=== PATIENT | female | born 1950 | race Hispanic/Latino ===

== ENCOUNTER 2016-08-19 21:02 | Observation (INO) | payer MEDICARE, BC ==
[2016-08-19 21:02] VITALS: BMI 21.6
[2016-08-19] MEDS ORDERED: Sodium Chloride 0.9% 500 ML IV STA (21:36)
[2016-08-19] MEDS ORDERED: HYDROmorphone 0.5 mg/0.5 ml ISec IVP STA ×2 (21:36→22:25)
--- NOTE | 2016-08-19 21:48 | ED PDOC ---
Arrival/HPI - General Historian: Patient <CHELSIE SANTILLAN - Last Filed: 08/20/16 03:16> <Rangel Aguirre - Last Filed: 08/21/16 01:42> - General Chief Complaint: Abdominal Pain Time Seen by Provider: 08/19/16 21:06 - History of Present Illness Narrative History of Present Illness (Text): 08/19/16 21:43 Mrs. Ruff is a 66 year old female with pmh significant for small bowel obstruction in 2014 and renal stones comes into the emergency department complaining of abdominal pain. She states the pain began earlier in the day and has progressed in to the evening. She describes the pain as dull mid-abdominal pain without radiation that is rated as a 11/10. She states the pain intermittent in nature. She denies any alleviating or aggravating factors at this time. Associated symptoms include nausea, vomiting and diarrhea. She denies fever, sweating, chest pain, or shortness of breath. (CHELSIE SANTILLAN) Past Medical History - Provider Review Nursing Documentation Reviewed: Yes - Infectious Disease Hx of Infectious Diseases: None - Tetanus Immunization Tetanus Immunization: Unknown - Cardiac Hx Cardiac Disorders: No - Pulmonary Hx Respiratory Disorders: No - Neurological Hx Neurological Disorder: No - HEENT Hx HEENT Disorder: No - Renal Hx Kidney Stones: Yes - Endocrine/Metabolic Hx Endocrine Disorders: No - Hematological/Oncological Hx Blood Disorders: No Hx Blood Transfusions: No Hx Blood Transfusion Reaction: No - Integumentary Hx Dermatological Disorder: No - Musculoskeletal/Rheumatological Hx Back Pain: Yes (laminectomy x2) - Gastrointestinal Hx Gastrointestinal Disorders: Yes Hx Bowel Surgery: Yes (partial bowel obstruction) Other/Comment: ovarian cyst removed 2001 - Psychiatric Hx Psychophysiologic Disorder: No Hx Depression: No Hx Emotional Abuse: No Hx Physical Abuse: No Hx Substance Use: No - Surgical History Hx Cholecystectomy: Yes (1978) - Anesthesia Hx Anesthesia: No Hx Anesthesia Reactions: No Hx Malignant Hyperthermia: No - Suicidal Assessment Feels Threatened In Home Enviroment: No <CHELSIE SANTILLAN - Last Filed: 08/20/16 03:16> - Provider Review Nursing Documentation Reviewed: Yes <Rangel Aguirre - Last Filed: 08/21/16 01:42> Family/Social History - Physician Review Nursing Documentation Reviewed: Yes Family/Social History: No Known Family HX Smoking Status: Former Smoker Hx Alcohol Use: Yes Hx Substance Use: No Hx Substance Use Treatment: No <CHELSIE SANTILLAN - Last Filed: 08/20/16 03:16> - Physician Review Nursing Documentation Reviewed: Yes Family/Social History: No Known Family HX <Rangel Aguirre - Last Filed: 08/21/16 01:42> Allergies/Home Meds <CHELSIE SANTILLAN - Last Filed: 08/20/16 03:16> <Rangel Aguirre - Last Filed: 08/21/16 01:42> Allergies/Adverse Reactions: Allergies No Known Allergies Allergy (Verified 08/20/16 05:08) Review of Systems - Review of Systems Constitutional: absent: Fatigue, Weight Change, Fevers Eyes: absent: Vision Changes Respiratory: absent: SOB, Cough, Sputum Cardiovascular: absent: Chest Pain, Palpitations, Edema Gastrointestinal: Abdominal Pain, Diarrhea, Nausea, Vomiting, Food Intolerance. absent: Hematemesis Genitourinary Female: absent: Dysuria, Frequency, Hematuria Musculoskeletal: absent: Back Pain Skin: absent: Rash, Pruritis Neurological: absent: Headache, Dizziness, Focal Weakness Psychiatric: absent: Anxiety, Depression <CHELSIE SANTILLAN - Last Filed: 08/20/16 03:16> - Physician Review All systems were reviewed & negative as marked: Yes <Rangel Aguirre - Last Filed: 08/21/16 01:42> Physical Exam Vital Signs Reviewed: Yes Temperature: Afebrile Blood Pressure: Normal Pulse: Tachycardic Respiratory Rate: Normal Appearance: Positive for: Uncomfortable Pain Distress: Moderate Mental Status: Positive for: Alert and Oriented X 3 - Systems Exam Head: Present: Atraumatic, Normocephalic Pupils: Present: PERRL Extroacular Muscles: Present: EOMI Conjunctiva: Present: Normal Mouth: Present: Dry Neck: Present: Normal Range of Motion Respiratory/Chest: Present: Clear to Auscultation, Good Air Exchange. No: Respiratory Distress, Accessory Muscle Use Cardiovascular: Present: Regular Rate and Rhythm, Normal S1, S2. No: Murmurs Abdomen: Present: Tenderness (mid abdomen ), Guarding. No: Normal Bowel Sounds (hypocactive bowel sounds), Peritoneal Signs, Rovsing's Sign Present Upper Extremity: Present: Normal Inspection, NORMAL PULSES. No: Edema Lower Extremity: Present: Normal Inspection, NORMAL PULSES. No: Edema Neurological: Present: GCS=15, CN II-XII Intact, Speech Normal Skin: Present: Warm, Dry Psychiatric: Present: Alert, Oriented x 3 <CHELSIE SANTILLAN - Last Filed: 08/20/16 03:16> Medical Decision Making <CHELSIE SANTILLAN - Last Filed: 08/20/16 03:16> <Rangel Aguirre - Last Filed: 08/21/16 01:42> ED Course and Treatment: 08/19/16 21:52 Impression: Mrs. Ruff is a 66 year old female complaining of abdominal pain that has been ongoing for 6-8 hours. Differential Diagnosis included but are not limited to: - Gastritis - Colitis - Small bowel obstruction - IBD Plan: - IVF - CBC, CMP, Lipase - CT scan abdomen and pelvis - zofran - dilaudid -- Reassess and disposition Progress Notes: 08/20/16 03:17 (CHELSIE SANTILLAN) Impression: Pt seen and evaluated with biomedical equipment support specialist. Pt, whose past medical history includes small bowel obstruction and kidney stones, presented for intermittent mid-abdominal pain with associated nausea, vomiting, and diarrhea. Aware and agree with HPI, clinical findings, plan, and management. Plan: -- CT Abdomen and Pelvis with IV contrast -- Labs, lipase -- IV fluids -- Zofran -- Dilaudid -- Reassess and disposition (Rangel Aguirre) - Lab Interpretations Lab Results: 08/19/16 21:53 08/19/16 21:53 Lab Results 08/19/16 21:53: Sodium 141, Potassium 3.4 L, Chloride 104, Carbon Dioxide 27, Anion Gap 13, BUN 25 H, Creatinine 0.7, Est GFR ( Amer) > 60, Est GFR ( Non-Af Amer) > 60, Random Glucose 145 H, Calcium 10.3, Total Bilirubin 0.7, AST 33, ALT 28, Alkaline Phosphatase 80, Total Protein 7.8, Albumin 4.5, Globulin 3.3, Albumin/Globulin Ratio 1.4, Lipase 34 08/19/16 21:53: WBC 10.6, RBC 4.70, Hgb 14.9, Hct 43.2, MCV 91.9, MCH 31.7, MCHC 34.5, RDW 12.6, Plt Count 197, MPV 11.0 - RAD Interpretation Radiology Orders: 08/19/16 22:24 ABD & PELVIS IV CONTRAST ONLY [CT] Stat - Medication Orders Current Medication Orders: Hydromorphone HCl (Dilaudid) 0.5 mg IVP Q4H PRN PRN Reason: Pain, moderate (4-7) Last Admin: 08/20/16 11:42 Dose: 0.5 mg Re-Assess: VISHAL Pain Assessment Document 08/20/16 12:42 RS (Rec: 08/20/16 12:53 RS [email or web address]) Pain Reassessment Is this a pain reassessment? Yes Sleep Is patient sleeping during reassessment? No Presence of Pain Presence of Pain No Metronidazole (Flagyl) 250 mg in 50 mls @ 100 mls/hr IV Q8 KAILA PRN Reason: Protocol Stop: 08/25/16 10:01 Last Admin: 08/20/16 21:53 Dose: 100 mls/hr Ceftriaxone Sodium (Rocephin 1 Gram Ivpb) 1 gm in 100 mls @ 100 mls/hr IVPB DAILY KAILA PRN Reason: Protocol Last Admin: 08/20/16 11:01 Dose: 100 mls/hr Ondansetron HCl (Zofran Inj) 4 mg IVP Q6H PRN PRN Reason: Nausea/Vomiting Last Admin: 08/20/16 11:53 Dose: 4 mg Pantoprazole Sodium (Protonix Inj) 40 mg IVP DAILY KAILA Discontinued Medications Hydromorphone HCl (Dilaudid) 0.5 mg IVP STAT STA Stop: 08/19/16 21:37 Last Admin: 08/19/16 21:59 Dose: 0.5 mg Hydromorphone HCl (Dilaudid) 0.5 mg IVP STAT STA Stop: 08/19/16 22:26 Last Admin: 08/19/16 22:36 Dose: 0.5 mg Hydromorphone HCl (Dilaudid) 0.5 mg IVP STAT STA Stop: 08/20/16 01:31 Last Admin: 08/20/16 01:40 Dose: 0.5 mg Sodium Chloride (Sodium Chloride 0.9%) 500 mls @ 999 mls/hr IV .Q31M STA Stop: 08/19/16 22:06 Last Admin: 08/19/16 21:58 Dose: 999 mls/hr Metronidazole (Flagyl) 500 mg in 100 mls @ 100 mls/hr IVPB STAT STA PRN Reason: Protocol Stop: 08/20/16 02:09 Last Admin: 08/20/16 01:20 Dose: 100 mls/hr Sodium Chloride (Sodium Chloride 0.9%) 1,000 mls @ 100 mls/hr IV .Q10H STA Stop: 08/20/16 12:07 Last Admin: 08/20/16 02:27 Dose: 100 mls/hr Potassium Chloride (Potassium Chloride 10 Meq/100 Ml) 10 meq in 100 mls @ 100 mls/hr IVPB Q2H KAILA Stop: 08/20/16 05:59 Last Admin: 08/20/16 07:23 Dose: 100 mls/hr Iohexol (Omnipaque 350 100 Ml) Confirm Administered Dose 350 mg .ROUTE .STK-MED ONE Stop: 08/20/16 00:01 Metoclopramide HCl (Reglan) 10 mg IVP STAT STA Stop: 08/20/16 03:00 Last Admin: 08/20/16 03:06 Dose: 10 mg Ondansetron HCl (Zofran Tab) 4 mg PO STAT STA Stop: 08/19/16 21:34 Last Admin: 08/19/16 21:59 Dose: 4 mg Ondansetron HCl (Zofran Inj) 4 mg IVP STAT STA Stop: 08/19/16 22:26 Last Admin: 08/19/16 22:37 Dose: 4 mg Ondansetron HCl (Zofran Inj) 4 mg IVP STAT STA Stop: 08/20/16 01:31 Last Admin: 08/20/16 01:41 Dose: 4 mg Pantoprazole Sodium (Protonix Inj) 40 mg IVP STAT STA Stop: 08/20/16 03:11 - PA / POLICE DETENTION ATTENDANT / Resident Statement SHARIF has reviewed & agrees with the documentation as recorded. SHARIF has examined the patient and agrees with the treatment plan. <CHELSIE SANTILLAN - Last Filed: 08/20/16 03:16> - PA / POLICE DETENTION ATTENDANT / Resident Statement SHARIF has examined the patient and agrees with the treatment plan. <Rangel Aguirre - Last Filed: 08/21/16 01:42> Disposition/Present on Arrival - Present on Arrival Any Indicators Present on Arrival: No History of DVT/PE: No History of Uncontrolled Diabetes: No Urinary Catheter: No History of Decub. Ulcer: No History Surgical Site Infection Following: None - Disposition Have Diagnosis and Disposition been Completed?: Yes Disposition Time: 02:45 <CHELSIE SANTILLAN - Last Filed: 08/20/16 03:16> - Present on Arrival Any Indicators Present on Arrival: No - Disposition Have Diagnosis and Disposition been Completed?: Yes <Rangel Aguirre - Last Filed: 08/21/16 01:42> - Disposition Diagnosis: Colitis Disposition: HOSPITALIZED Patient Problems: Current Active Problems Problem Status Onset Colitis Acute Condition: GOOD
[2016-08-19 22:09] LABS: HEMOGLOBIN 14.9 gm/dL (12.0-16.0); MEAN CELL VOLUME 91.9 fL (80.0-105.0); MEAN CORPUSCULAR HEMOGLOBIN 31.7 pg (25.0-35.0); MEAN CORPUSCULAR HGB CONC 34.5 g/dl (31.0-37.0); RBC 4.7 10^6/uL (3.5-6.1); RED CELL DISTRIBUTION WIDTH 12.6 % (11.5-14.5); WHITE BLOOD COUNT 10.6 10^3/ul (4.5-11.0)
[2016-08-19 22:14] LABS: ALB/GLOB RATIO 1.4 (1.1-1.8); ALBUMIN 4.5 g/dL (3.0-4.8); ALT/SGPT 28 U/L (7-56); AST/SGOT 33 U/L (15-39); BLOOD UREA NITROGEN 25 mg/dL (7-21); CALCIUM 10.3 mg/dL (8.4-10.5); GFR AFRICAN-AMERICAN > 60; GFR NON-AFRICAN AMERICAN > 60; LIPASE 34 U/L (23-300)
[2016-08-20] MEDS ORDERED: Iohexol 350 MG/100 ML VIAL ONE
[2016-08-20] MEDS ORDERED: metroNIDAZOLE IV 500 mg/100 ml 500 MG/100 ML BAG IVPB STA (01:10)
[2016-08-20] MEDS ORDERED: HYDROmorphone 0.5 mg/0.5 ml ISec IVP STA (01:30)
[2016-08-20] MEDS ORDERED: Sodium Chloride 0.9% 1,000 ML IV STA (02:08)
[2016-08-20] MEDS: HYDROmorphone 0.5 mg/0.5 ml ISec IVP PRN ×2 (03:06→11:42)
--- NOTE | 2016-08-20 04:23 | CP.PCM.PN ---
Subjective - Date & Time of Evaluation Date of Evaluation: 08/20/16 Time of Evaluation: 04:23 - Subjective Subjective: Patient was seen at bedside for vomiting. She has been vomiting , received Zofran a little more than an hour ago. Also complains of little epigastric pain. Has no other complaints now. Denies chest pain, sob, diarrhoea. Medcial record was reviewed. This 66 year old white woman is here for abdominal pain ,vomiting, nausea, diarrhoea. Has PMH of Small bowel obstruction, cholecystectomy, renal calculus, laminectomy, chronic back pain. Objective - Vital Signs/Intake and Output Vital Signs (last 24 hours): Temp Pulse Resp BP Pulse Ox 98.0 F 95 H 19 138/85 98 08/20/16 03:29 08/20/16 03:29 08/20/16 03:29 08/20/16 03:29 08/20/16 02:29 - Medications Medications: Current Medications Hydromorphone HCl (Dilaudid) 0.5 mg IVP Q4H PRN PRN Reason: Pain, moderate (4-7) Last Admin: 08/20/16 03:06 Dose: 0.5 mg Sodium Chloride (Sodium Chloride 0.9%) 1,000 mls @ 100 mls/hr IV .Q10H STA Stop: 08/20/16 12:07 Last Admin: 08/20/16 02:27 Dose: 100 mls/hr Potassium Chloride (Potassium Chloride 10 Meq/100 Ml) 10 meq in 100 mls @ 100 mls/hr IVPB Q2H KAILA Stop: 08/20/16 05:59 Ondansetron HCl (Zofran Inj) 4 mg IVP Q6H PRN PRN Reason: Nausea/Vomiting Pantoprazole Sodium (Protonix Inj) 40 mg IVP DAILY KAILA - Labs Labs: Most Recent Lab Values WBC 10.6 10^3/ul (4.5-11.0) 08/19/16 21:53 RBC 4.70 10^6/uL (3.5-6.1) 08/19/16 21:53 Hgb 14.9 gm/dL (12.0-16.0) 08/19/16 21:53 Hct 43.2 % (36.0-48.0) 08/19/16 21:53 MCV 91.9 fL (80.0-105.0) 08/19/16 21:53 MCH 31.7 pg (25.0-35.0) 08/19/16 21:53 MCHC 34.5 g/dl (31.0-37.0) 08/19/16 21:53 RDW 12.6 % (11.5-14.5) 08/19/16 21:53 Plt Count 197 10^3/uL (120.0-450.0) 08/19/16 21:53 MPV 11.0 fl (7.0-11.0) 08/19/16 21:53 Sodium 141 mmol/L (132-148) 08/19/16 21:53 Potassium 3.4 mmol/L (3.6-5.0) L 08/19/16 21:53 Chloride 104 mmol/L (98-107) 08/19/16 21:53 Carbon Dioxide 27 mmol/L (21-33) 08/19/16 21:53 Anion Gap 13 (10-20) 08/19/16 21:53 BUN 25 mg/dL (7-21) H 08/19/16 21:53 Creatinine 0.7 mg/dL (0.5-1.4) 08/19/16 21:53 Est GFR ( Amer) > 60 08/19/16 21:53 Est GFR (Non-Af Amer) > 60 08/19/16 21:53 Random Glucose 145 mg/dL (70-110) H 08/19/16 21:53 Calcium 10.3 mg/dL (8.4-10.5) 08/19/16 21:53 Total Bilirubin 0.7 mg/dL (0.2-1.3) 08/19/16 21:53 AST 33 U/L (15-39) 08/19/16 21:53 ALT 28 U/L (7-56) 08/19/16 21:53 Alkaline Phosphatase 80 U/L (38-133) 08/19/16 21:53 Total Protein 7.8 g/dL (5.8-8.3) 08/19/16 21:53 Albumin 4.5 g/dL (3.0-4.8) 08/19/16 21:53 Globulin 3.3 gm/dL 08/19/16 21:53 Albumin/Globulin Ratio 1.4 (1.1-1.8) 08/19/16 21:53 Lipase 34 U/L (23-300) 08/19/16 21:53 - Constitutional Appears: Well, No Acute Distress - Head Exam Head Exam: ATRAUMATIC, NORMAL INSPECTION, NORMOCEPHALIC - Eye Exam Eye Exam: Normal appearance - ENT Exam ENT Exam: Mucous Membranes Dry - Neck Exam Neck Exam: Normal Inspection - Respiratory Exam Respiratory Exam: NORMAL BREATHING PATTERN - Cardiovascular Exam Cardiovascular Exam: absent: JVD - GI/Abdominal Exam GI & Abdominal Exam: Soft (Yes.), Tenderness (Mild epigastric tenderness present.), Normal Bowel Sounds. absent: Bruit, Distended, Firm, Guarding, Rigid , Hernia, Mass, Organomegaly, Pulsatile Mass, Rebound - Rectal Exam Rectal Exam: Deferred - Exam Additional comments: Deferred. - Extremities Exam Extremities Exam: Normal Inspection - Back Exam Back Exam: NORMAL INSPECTION - Neurological Exam Neurological Exam: Alert, Oriented x3 - Psychiatric Exam Psychiatric exam: Normal Affect, Normal Mood - Skin Skin Exam: Dry, Normal Color Assessment and Plan - Assessment and Plan (Free Text) Assessment: Abdominal pain. Vomiting. History small bowel obstruction. History cholecystectomy. Hypokalemia. Dehydration. Plan: Reglan 10 mg IV stat. KCL 10 mEq IV x 2. Protonix 40 mg IV stat and daily. Continue present management as per PMD.
--- NOTE | 2016-08-20 09:09 | CT ---
PROCEDURE: CT abdomen and pelvis dated 10/13/2014 HISTORY: Abdominal pain. COMPARISON: Comparison made with CT scan abdomen pelvis 10/13/2014. TECHNIQUE: Contiguous axial pelvis performed following oral and intravenous injection of approximately 96 cc Omnipaque 350 contrast material. . Coronal and Sagittal reformats generated. Radiation dose: Total exam DLP = 371.65 mGy-cm. This CT exam was performed using one or more of the following dose reduction techniques: Automated exposure control, adjustment of the mA and/or kV according to patient size, and/or use of iterative reconstruction technique. FINDINGS: LOWER THORAX: Mild atelectasis both posterior lower lung fried. No effusion or basilar pneumothorax. Tiny hiatal hernia with slight wall thickening of the esophagus that could be due to protrusion of gastric mucosa. Possibility of esophagitis not excluded. Heart size within range of normal. No significant pericardial effusion. LIVER: Liver is mildly enlarged measuring nearly 19 cm in CC dimension. Mild fatty hepatic infiltration. Portal and splenic veins are opacified. There is mild central intrahepatic biliary ductal dilatation. . Small approximately 4.5 mm elliptical shaped low-attenuation focus superior aspect right lobe liver on could represent small cyst or hemangioma though appears unchanged from prior study so far as can be seen. GALLBLADDER AND BILE DUCTS: Re- demonstrated are changes of cholecystectomy with metallic clips in the gallbladder fossa. . Persistent dilatation of the common bile duct measuring nearly 9.5 mm in diameter. . PANCREAS: No obvious hepatic mass or collection. The pancreatic duct is is mildly prominent at the level of the pancreatic head and midbody however not significantly dilated. . No definitive pancreatic mass or collection. No abnormal pancreatic calcifications. SPLEEN: Spleen exhibits normal size and attenuation pattern without mass collection or calcification. ADRENALS: There are no adrenal lesions. KIDNEYS AND URETERS: . Re- demonstrated are bilateral renal calculi. There is a small approximately 5.6 mm elliptical shaped calculus midpole left kidney unchanged. Punctate calcification - mid-lower pole region also unchanged. Punctate calcification mid to lower pole right kidney noted. No evidence of hydronephrosis. Again noted are multiple small bilateral low-attenuation foci renal. Most are likely simple cysts however there is a small approximately 5.6 mm slightly hypodense lesion in the anterior cortex of mid to lower pole right kidney which is not clearly cystic and could represent hyperdense cyst. The possibility of a solid lesion cannot be excluded. Consider followup renal ultrasound for further evaluation of to help but distinguish cyst versus a solid lesion. MRI may necessary for further evaluation. . The largest suspected cyst upper pole right kidney measuring approximately and the largest on the left posteromedial aspect midpole left kidney measuring approximately 12 mm. BLADDER: Urinary bladder is physiologically distended. No evidence of intraluminal urinary bladder calculi. REPRODUCTIVE: Uterus and adnexal structures appear grossly unremarkable. APPENDIX: Appendix is not seen with complete certainty. BOWEL: Evaluation of the bowel is limited due to the lack of oral contrast material. . The stomach is incompletely distended which may account for thick-walled appearance. Possibility of gastritis or other intrinsic/invasive wall lesion not excluded. Multiple fluid-filled loops of small bowel are present with minimal wall thickening. . . There is also wall thickening of the cecum, ascending and transverse colon findings could represent enterocolitis. PERITONEUM: Unremarkable. No fluid collection. No free air. LYMPH NODES: Unremarkable. No enlarged lymph nodes. VASCULATURE: Unremarkable. No aortic aneurysm. BONES: Multilevel degenerative spondylosis of the lower thoracic and lumbar spine. There is a dextroscoliosis centered at approximately the L2 level. Apparent fusion changes L5-S1 level. OTHER FINDINGS: None. IMPRESSION: Multiple fluid-filled loops of small bowel with minimal wall thickening suggesting underlying enteritis. . Additionally, there is abnormal wall thickening of the cecum at ascending and transverse colon consistent with colitis. Collectively findings may represent enterocolitis. Rule out the inflammatory versus infectious etiologies. Status post cholecystectomy with dilatation of the common bile duct and mild intrahepatic biliary ductal dilatation. Mild hepatomegaly with mild fatty hepatic infiltration. Small low-attenuation focus superior aspect right lobe liver too small to characterize though relatively stable in appearance since prior exam. This could represent small cyst or hemangioma. Multiple bilateral low-attenuation foci both kidneys of most of which probably represent cysts however there is a 5.6 mm slightly hypodense lesion right kidney that is not clearly cystic and could represent hyperdense cyst. Possibility of a solid lesion not excluded. Follow-up renal ultrasound or MRI may be of some benefit. Repeat CT scan in performed as well. Bilateral nonobstructing renal calculi. See above discussion for additional findings and details.
--- NOTE | 2016-08-20 10:00 | CP.PCM.CON ---
<Suha Garg - Last Filed: 08/20/16 14:09> History of Present Illness - History of Present Illness History of Present Illness: Judy Ruff is a 66F w/ hx of SBO s/p ex lap and diverticulitis who presented to the ED with complaints of abd pain and nausea. Pt states that he was was in her normal health until yesterday morning. She awoke nauseous, but was initially mild and she could tolerate a light meal of toast. She states that her nausea eventually worsened to where she was incapacitated. Concurrently she describes a new onset of abd pain. Located in the epigastric area, non- radiating. Worsened to a point of 10 out of 10 pain. Pt could not recall any alleviating or aggravating factors. Pt states only billous ouput, denies any food particles or blood. Pt states that she also started to experience new onset diarrhea. Pt states that she had at least 3-4 BM yesterday with soft and runny stool. Denies any mucus, BRB, or melena. Pt denies any recent abx use. Denies any sick contacts. No recent travel, other than [place], a few weeks ago. Denies any fever, chills or diaphoresis. Pt states that she has a colonoscopy at the age of 51 with no sig findings, but has not had a follow-up since. Pt states that she was d/w her PCP about cologuard testing. In the ER, she was found to have a enteritis and colitis of transverse and asceding on CT ( limited due to no PO contrast). Pt nausea resolved after zofran and no longer has pain after dilaudid. Pt also recieved flagyl in the ER. Social history: clinical social work aide, non-smoker, social ETOH use, denies nay illicit drug use Family history: father (breast cancer), mother (lymphoma) ROS: 12 point review of systems was conducted, neg other than what was stated in the HPI Past Patient History - Infectious Disease Hx of Infectious Diseases: None - Tetanus Immunizations Tetanus Immunization: Unknown - Past Social History Smoking Status: Never Smoked - CARDIAC Hx Cardiac Disorders: No - PULMONARY Hx Respiratory Disorders: No - NEUROLOGICAL Hx Neurological Disorder: No - HEENT Hx HEENT Problems: No - RENAL Hx Kidney Stones: Yes - ENDOCRINE/METABOLIC Hx Endocrine Disorders: No - HEMATOLOGICAL/ONCOLOGICAL Hx Blood Disorders: No Hx Blood Transfusions: No Hx Blood Transfusion Reaction: No - INTEGUMENTARY Hx Dermatological Problems: No - MUSCULOSKELETAL/RHEUMATOLOGICAL Hx Falls: No - GASTROINTESTINAL Hx Gastrointestinal Disorders: Yes Hx Bowel Surgery: Yes (partial bowel obstruction) Other/Comment: ovarian cyst removed 2001 - PSYCHIATRIC Hx Psychophysiologic Disorder: No Hx Depression: No Hx Emotional Abuse: No Hx Physical Abuse: No Hx Substance Use: No - SURGICAL HISTORY Hx Cholecystectomy: Yes (1978) - ANESTHESIA Hx Anesthesia: No Hx Anesthesia Reactions: No Hx Malignant Hyperthermia: No Meds Allergies/Adverse Reactions: Allergies Allergy/AdvReac Type Severity Reaction Status Date / Time No Known Allergies Allergy Verified 08/20/16 05:08 - Medications Medications: Current Medications Hydromorphone HCl (Dilaudid) 0.5 mg IVP Q4H PRN PRN Reason: Pain, moderate (4-7) Last Admin: 08/20/16 03:06 Dose: 0.5 mg Sodium Chloride (Sodium Chloride 0.9%) 1,000 mls @ 100 mls/hr IV .Q10H STA Stop: 08/20/16 12:07 Last Admin: 08/20/16 02:27 Dose: 100 mls/hr Ondansetron HCl (Zofran Inj) 4 mg IVP Q6H PRN PRN Reason: Nausea/Vomiting Pantoprazole Sodium (Protonix Inj) 40 mg IVP DAILY [facility] Physical Exam - Constitutional Appears: Well, Non-toxic, No Acute Distress - Head Exam Head Exam: ATRAUMATIC, NORMOCEPHALIC - Eye Exam Eye Exam: EOMI, Normal appearance - ENT Exam ENT Exam: Mucous Membranes Moist, Normal Exam - Neck Exam Neck exam: Positive for: Normal Inspection - Respiratory Exam Respiratory Exam: Clear to Auscultation Bilateral, NORMAL BREATHING PATTERN. absent: Wheezes - Cardiovascular Exam Cardiovascular Exam: REGULAR RHYTHM. absent: Rubs - GI/Abdominal Exam GI & Abdominal Exam: Normal Bowel Sounds, Soft. absent: Distended, Firm, Guarding, Hyperactive Bowel Sounds, Organomegaly, Rigid - Rectal Exam Rectal Exam: NORMAL INSPECTION - Extremities Exam Extremities exam: Positive for: normal inspection. Negative for: calf tenderness, joint swelling, tenderness - Back Exam Back exam: NORMAL INSPECTION - Neurological Exam Neurological exam: Alert, Oriented x3 - Psychiatric Exam Psychiatric exam: Normal Affect, Normal Mood - Skin Skin Exam: Dry, Intact, Warm Results - Vital Signs Recent Vital Signs: Last Vital Signs Temp 98.6 F 08/20/16 08:02 Pulse 102 H 08/20/16 08:02 Resp 19 08/20/16 08:02 BP 98/60 L 08/20/16 08:02 Pulse Ox 96 08/20/16 08:02 - Labs Result Diagrams: 08/19/16 21:53 08/19/16 21:53 - Imaging and Cardiology CT scan - abdomen Status: Image reviewed by me, Report reviewed by me Additional comment: dialated loops of SB, come mild thickening of transverse Assessment & Plan - Assessment and Plan (Free Text) Assessment: Judy Ruff is a 66F w/ hx of SBO and diverticulitis who presented to the ER w / complaints of Abd pain, nausea, and vomiting. Pt was found to have enteris and colitis on CT abd/pelvis, though it was limited due to no PO contrast. Started on flagyl Enterocolitis -murtazaley infectious viral vs bacterial; r/o diverticulitis -lipase/amylase WNL, unlikely pancreatitis -r/o c/diff -recommend transitioning to PO abx of flagyl and ciprofloxacin for a total of 5 days therapy -can advance diet as tolerated -pt has not has a colonoscopy since the age of 51, can do a follow-up colonoscopy for post colitis w/u and screening as oupt -recommend no meat in diet for at least 3 days -f/u outpt w/ Dr. Burton in 2-3 weeks Diarrhea likely 2/2 to the above -send for c.diff -send for stool leukocytes -hold stool softners for now hx of chronic Constipation -etiology likely functional -can continue miraalax as oupt D/w Dr. Burton <Fede Burton - Last Filed: 08/20/16 14:28> Meds - Medications Medications: Current Medications Hydromorphone HCl (Dilaudid) 0.5 mg IVP Q4H PRN PRN Reason: Pain, moderate (4-7) Last Admin: 08/20/16 11:42 Dose: 0.5 mg Metronidazole (Flagyl) 250 mg in 50 mls @ 100 mls/hr IV Q8 [facility] PRN Reason: Protocol Stop: 08/25/16 10:01 Last Admin: 08/20/16 13:56 Dose: 100 mls/hr Ceftriaxone Sodium (Rocephin 1 Gram Ivpb) 1 gm in 100 mls @ 100 mls/hr IVPB DAILY [facility] PRN Reason: Protocol Last Admin: 08/20/16 11:01 Dose: 100 mls/hr Ondansetron HCl (Zofran Inj) 4 mg IVP Q6H PRN PRN Reason: Nausea/Vomiting Last Admin: 08/20/16 11:53 Dose: 4 mg Pantoprazole Sodium (Protonix Inj) 40 mg IVP DAILY [facility] Results - Vital Signs Recent Vital Signs: Last Vital Signs Temp 98.6 F 08/20/16 08:02 Pulse 102 H 08/20/16 08:02 Resp 19 08/20/16 08:02 BP 98/60 L 08/20/16 08:02 Pulse Ox 96 08/20/16 08:02 - Labs Result Diagrams: 08/19/16 21:53 08/19/16 21:53 Attending/Attestation - Attestation I have personally seen and examined this patient.: Yes I have fully participated in the care of the patient.: Yes I have reviewed all pertinent clinical information: Yes Notes (Text): 08/20/16 14:22 I have seen and examined patient with GI fellow. Agree with above documentation with the following additions. In brief, this is a 66 year old female with history of small bowel obstruction, diverticulitis who presents to hospital with complaint of sudden onset abdominal pain and diarrhea which began yesterday. Prior to this she was in her usual state of health. The pain is described in her epigastric region, 10/10 intensity, worse with movement and food consumption. She denies recent travel, sick contacts, antibiotic use, weight loss, Wor unusual food consumption. She describes having up to 4-5 episodes of watery non-bloody bowel movements, no recurrent episodes since arrival to hospital. She still endorses ongoing abdominal pain, controlled with pain medication regimen. She had a colonoscopy 15 years ago which was normal as per patient. History of SBO Abdominal pain, diarrhea CT imaging reviewed by me showing no signs of obstruction, wall thickening in small bowel, cecum, and ascending colon consistent with enterocolitis - Liquid diet, advance slowly as tolerated - Anti-emetic therapy PRN - Pain control - Obtain stool studies (culture, c-difficile) - Continue antibiotic therapy to complete 5 day course - If tolerating PO diet, from GI perspective ok to discharge home with subsequent outpatient follow up in my office. Will plan for elective outpatient colonoscopy following resolution of acute symptoms.
[2016-08-20] MEDS: cefTRIAXone 1 gm 1 GM/100 ML BAG IVPB SCH (11:01)
[2016-08-20] MEDS: metroNIDAZOLE IV 250mg/50 ml 250 MG/50 ML BAG IV SCH ×3 (11:01→21:53)
--- NOTE | 2016-08-20 11:03 | CP.PCM.PCO ---
Physician Communication Note - Physician Communication Note Physician Communication Note: Dx Gastroenteritis-Poss colitis/EGD-Noy recommended-no surgery!
--- NOTE | 2016-08-20 11:52 | CP.PCM.CON ---
History of Present Illness - History of Present Illness History of Present Illness: General Surgery Resident: Timothy Attending: Alexis HPI: Patient presented to the ER via ambulance for belly pain associated with vomiting and diarrhea that began yesterday. Nothing makes the pain better or worse. It does not radiate. Since the pain began it has not remitted. Today the pain is still present and is most prominent in the epigastrium. She tried to eat ice chips this am but stopped due to nausea. Patient is no longer passing gas. Denies CP/SOB/Fever/Chills. PSH: * Lap marlon * Ex lap for a SBO * Back surgery x2 * Removal of Ovarian cyst Review of Systems - Constitutional Constitutional: absent: Chills, Fever, Night Sweats - Cardiovascular Cardiovascular: absent: Chest Pain, Diaphoresis - Respiratory Respiratory: absent: Cough, Dyspnea - Gastrointestinal Gastrointestinal: Abdominal Pain (epigastric), Diarrhea, Nausea, Vomiting Past Patient History - Infectious Disease Hx of Infectious Diseases: None - Tetanus Immunizations Tetanus Immunization: Unknown - Past Social History Smoking Status: Never Smoked - CARDIAC Hx Cardiac Disorders: No - PULMONARY Hx Respiratory Disorders: No - NEUROLOGICAL Hx Neurological Disorder: No - HEENT Hx HEENT Problems: No - RENAL Hx Kidney Stones: Yes - ENDOCRINE/METABOLIC Hx Endocrine Disorders: No - HEMATOLOGICAL/ONCOLOGICAL Hx Blood Disorders: No Hx Blood Transfusions: No Hx Blood Transfusion Reaction: No - INTEGUMENTARY Hx Dermatological Problems: No - MUSCULOSKELETAL/RHEUMATOLOGICAL Hx Falls: No - GASTROINTESTINAL Hx Gastrointestinal Disorders: Yes Hx Bowel Surgery: Yes (partial bowel obstruction) Hx Constipation: Yes (takes miralax daily) Hx Vomiting: Yes Other/Comment: ovarian cyst removed 2001 - GENITOURINARY/GYNECOLOGICAL Hx Bladder Stone: Yes (multiple kidney stones) - PSYCHIATRIC Hx Psychophysiologic Disorder: No Hx Depression: No Hx Emotional Abuse: No Hx Physical Abuse: No Hx Substance Use: No - SURGICAL HISTORY Hx Cholecystectomy: Yes (1978) - ANESTHESIA Hx Anesthesia: No Hx Anesthesia Reactions: No Hx Malignant Hyperthermia: No Meds Allergies/Adverse Reactions: Allergies Allergy/AdvReac Type Severity Reaction Status Date / Time No Known Allergies Allergy Verified 08/20/16 05:08 - Medications Medications: Current Medications Hydromorphone HCl (Dilaudid) 0.5 mg IVP Q4H PRN PRN Reason: Pain, moderate (4-7) Last Admin: 08/20/16 11:42 Dose: 0.5 mg Sodium Chloride (Sodium Chloride 0.9%) 1,000 mls @ 100 mls/hr IV .Q10H STA Stop: 08/20/16 12:07 Last Admin: 08/20/16 02:27 Dose: 100 mls/hr Metronidazole (Flagyl) 250 mg in 50 mls @ 100 mls/hr IV Q8 [facility] PRN Reason: Protocol Stop: 08/25/16 10:01 Last Admin: 08/20/16 11:01 Dose: 100 mls/hr Ceftriaxone Sodium (Rocephin 1 Gram Ivpb) 1 gm in 100 mls @ 100 mls/hr IVPB DAILY [facility] PRN Reason: Protocol Last Admin: 08/20/16 11:01 Dose: 100 mls/hr Ondansetron HCl (Zofran Inj) 4 mg IVP Q6H PRN PRN Reason: Nausea/Vomiting Pantoprazole Sodium (Protonix Inj) 40 mg IVP DAILY [facility] Physical Exam - Constitutional Appears: Non-toxic - Head Exam Head Exam: ATRAUMATIC - Eye Exam Eye Exam: EOMI - ENT Exam ENT Exam: Mucous Membranes Moist - Respiratory Exam Respiratory Exam: Clear to Auscultation Bilateral - Cardiovascular Exam Cardiovascular Exam: REGULAR RHYTHM - GI/Abdominal Exam GI & Abdominal Exam: Tenderness Additional comments: epigastrium - Neurological Exam Neurological exam: Alert, Oriented x3 - Psychiatric Exam Psychiatric exam: Normal Mood Results - Vital Signs Recent Vital Signs: Last Vital Signs Temp 98.6 F 08/20/16 08:02 Pulse 102 H 08/20/16 08:02 Resp 19 08/20/16 08:02 BP 98/60 L 08/20/16 08:02 Pulse Ox 96 08/20/16 08:02 - Labs Result Diagrams: 08/19/16 21:53 08/19/16 21:53
[2016-08-20 17:39] VITALS: RESP 20
[2016-08-21] MEDS: metroNIDAZOLE IV 250mg/50 ml 250 MG/50 ML BAG IV SCH (06:12)
--- NOTE | 2016-08-21 08:03 | CP.PCM.PN ---
<Anish Levy - Last Filed: 08/21/16 08:06> Subjective - Date & Time of Evaluation Date of Evaluation: 08/21/16 Time of Evaluation: 07:59 - Subjective Subjective: General Surgery PGY [address] Dias Patient seen and examined at bedside this morning. Patient states that her abdominal pain has decreased greatly and now is just a dull gas pain. She had one episode of non-bloody diarrhea at 0200 this morning. She has tolerated her diet. Patient denies F/C, N/V, SOB, CP, headaches and/or numbness/tingling. Objective - Vital Signs/Intake and Output Vital Signs (last 24 hours): Temp Pulse Resp BP Pulse Ox 98.9 F 87 20 102/52 L 97 08/20/16 16:00 08/20/16 16:00 08/20/16 16:00 08/20/16 16:00 08/20/16 16:00 Intake and Output: 08/21/16 08/21/16 06:59 18:59 Intake Total 780 Balance 780 - Medications Medications: Current Medications Hydromorphone HCl (Dilaudid) 0.5 mg IVP Q4H PRN PRN Reason: Pain, moderate (4-7) Last Admin: 08/20/16 11:42 Dose: 0.5 mg Metronidazole (Flagyl) 250 mg in 50 mls @ 100 mls/hr IV Q8 [facility] PRN Reason: Protocol Stop: 08/25/16 10:01 Last Admin: 08/21/16 06:12 Dose: 100 mls/hr Ceftriaxone Sodium (Rocephin 1 Gram Ivpb) 1 gm in 100 mls @ 100 mls/hr IVPB DAILY [facility] PRN Reason: Protocol Last Admin: 08/20/16 11:01 Dose: 100 mls/hr Ondansetron HCl (Zofran Inj) 4 mg IVP Q6H PRN PRN Reason: Nausea/Vomiting Last Admin: 08/20/16 11:53 Dose: 4 mg Pantoprazole Sodium (Protonix Inj) 40 mg IVP DAILY [facility] - Constitutional Appears: Non-toxic, No Acute Distress - Head Exam Head Exam: ATRAUMATIC, NORMOCEPHALIC - Eye Exam Eye Exam: EOMI - ENT Exam ENT Exam: Mucous Membranes Moist - Respiratory Exam Respiratory Exam: Clear to Ausculation Bilateral, NORMAL BREATHING PATTERN. absent: Respiratory Distress - Cardiovascular Exam Cardiovascular Exam: REGULAR RHYTHM, +S1, +S2 - GI/Abdominal Exam GI & Abdominal Exam: Soft, Normal Bowel Sounds. absent: Distended, Guarding, Tenderness - Neurological Exam Neurological Exam: Alert, Awake - Psychiatric Exam Psychiatric exam: Normal Affect, Normal Mood - Skin Skin Exam: Dry, Normal Color, Warm Assessment and Plan - Assessment and Plan (Free Text) Assessment: 66 year old F with abdominal pain and hx of SBO. Plan: Advance to regular diet. If tolerated, ok to discharge from surgical stand point. No surgical intervention needed at this time. Anish eLvy PGY 1 <Zack Dias - Last Filed: 08/21/16 22:35> Objective - Vital Signs/Intake and Output Vital Signs (last 24 hours): Temp Pulse Resp BP Pulse Ox 98.6 F 79 20 114/76 96 08/21/16 08:24 08/21/16 08:24 08/21/16 08:24 08/21/16 08:24 08/21/16 08:24 Intake and Output: 08/21/16 08/22/16 18:59 06:59 Intake Total 780 Balance 780 - Labs Labs: 08/21/16 07:00 08/21/16 07:00 Assessment and Plan - Assessment and Plan (Free Text) Assessment: Dx Enterocolitis(Resolving now) Chris EGD/Colonoscopy Interval Basis This consult done under my direct supervision Juan Manuel Dias MD FACS
[2016-08-21 08:19] LABS: BASO # 0.01 K/mm3 (0.0-2.0); BASO % 0.3 % (0.0-3.0); EOS % 1.3 % (1.5-5.0); GRAN # 1.78 (1.4-6.5); GRAN % 57.6 % (50.0-68.0); HEMOGLOBIN 11.2 gm/dL (12.0-16.0); LYMPH % 31.1 % (22.0-35.0); MEAN CELL VOLUME 92.4 fL (80.0-105.0); MEAN CORPUSCULAR HEMOGLOBIN 30.3 pg (25.0-35.0); MEAN CORPUSCULAR HGB CONC 32.7 g/dl (31.0-37.0); MEAN PLATELET VOLUME 10.9 fl (7.0-11.0); MONO # 0.3 (0.1-0.6); MONO % 9.7 % (1.0-6.0); PLATELET COUNT 142 10^3/uL (120.0-450.0); RED CELL DISTRIBUTION WIDTH 13.1 % (11.5-14.5); WHITE BLOOD COUNT 3.1 10^3/ul (4.5-11.0)
[2016-08-21 08:25] VITALS: BP 114/76; PULSE 79; TEMP 98.6; O2SAT 96
[2016-08-21 08:32] LABS: ALB/GLOB RATIO 1.2 (1.1-1.8); ALBUMIN 2.8 g/dL (3.0-4.8); ALT/SGPT 34 U/L (7-56); AST/SGOT 32 U/L (15-39); BLOOD UREA NITROGEN 12 mg/dL (7-21); CALCIUM 8.8 mg/dL (8.4-10.5); GFR AFRICAN-AMERICAN > 60; GFR NON-AFRICAN AMERICAN > 60
--- NOTE | 2016-08-21 10:19 | CP.PCM.PN ---
<Suha Garg - Last Filed: 08/21/16 12:12> Subjective - Date & Time of Evaluation Date of Evaluation: 08/21/16 Time of Evaluation: 10:00 - Subjective Subjective: Pt seen and examined bedside c/o of some loose BM after more substantial diet Denies any abd pain Denies any fever, chills or diaphoresis Denies any Nausea or vomiting ROS 12-point ROS conducted by myself and other than what was stated above it was neg Objective - Vital Signs/Intake and Output Vital Signs (last 24 hours): Temp Pulse Resp BP Pulse Ox 98.6 F 79 20 114/76 96 08/21/16 08:24 08/21/16 08:24 08/21/16 08:24 08/21/16 08:24 08/21/16 08:24 Intake and Output: 08/21/16 08/21/16 06:59 18:59 Intake Total 780 Balance 780 - Medications Medications: Current Medications Hydromorphone HCl (Dilaudid) 0.5 mg IVP Q4H PRN PRN Reason: Pain, moderate (4-7) Last Admin: 08/20/16 11:42 Dose: 0.5 mg Metronidazole (Flagyl) 250 mg in 50 mls @ 100 mls/hr IV Q8 [facility] PRN Reason: Protocol Stop: 08/25/16 10:01 Last Admin: 08/21/16 06:12 Dose: 100 mls/hr Ceftriaxone Sodium (Rocephin 1 Gram Ivpb) 1 gm in 100 mls @ 100 mls/hr IVPB DAILY [facility] PRN Reason: Protocol Last Admin: 08/20/16 11:01 Dose: 100 mls/hr Potassium Chloride (Potassium Chloride 10 Meq/100 Ml) 10 meq in 100 mls @ 100 mls/hr IVPB Q2H [facility] Stop: 08/21/16 12:14 Last Admin: 08/21/16 10:04 Dose: Not Given Ondansetron HCl (Zofran Inj) 4 mg IVP Q6H PRN PRN Reason: Nausea/Vomiting Last Admin: 08/20/16 11:53 Dose: 4 mg Pantoprazole Sodium (Protonix Inj) 40 mg IVP DAILY [facility] - Labs Labs: 08/21/16 07:00 08/21/16 07:00 - Constitutional Appears: Well, Non-toxic, No Acute Distress - Head Exam Head Exam: ATRAUMATIC, NORMOCEPHALIC - Eye Exam Eye Exam: EOMI, Normal appearance - ENT Exam ENT Exam: Mucous Membranes Moist, Normal Exam - Neck Exam Neck Exam: Full ROM, Normal Inspection - Respiratory Exam Respiratory Exam: Clear to Ausculation Bilateral, NORMAL BREATHING PATTERN - Cardiovascular Exam Cardiovascular Exam: REGULAR RHYTHM - GI/Abdominal Exam GI & Abdominal Exam: Soft, Normal Bowel Sounds. absent: Guarding, Rigid, Tenderness, Mass, Organomegaly - Extremities Exam Extremities Exam: Full ROM, Normal Inspection - Neurological Exam Neurological Exam: Alert, Awake, Oriented x3 - Skin Skin Exam: Dry, Intact, Normal Color, Warm Assessment and Plan - Assessment and Plan (Free Text) Assessment: Judy Ruff is a 66F w/ hx of SBO and diverticulitis who presented to the ER w / complaints of Abd pain, nausea, and vomiting. Pt was found to have enteris and colitis on CT abd/pelvis, though it was limited due to no PO contrast. Enterocolitis -miguel infectious viral vs bacterial -recommend transitioning to PO abx of flagyl and ciprofloxacin for a total of 5 days therapy -pt has not has a colonoscopy since the age of 51, can do a follow-up colonoscopy for post colitis w/u and screening as oupt -recommend no meat in diet for at least 3 days -f/u outpt w/ Dr. Burton in 2-3 weeks Diarrhea likely 2/2 to the above -hold stool softners for now hx of chronic Constipation -etiology likely functional -can continue miraalax as oupt once symptomatic D/w Dr. Dumont <Greg Dumont - Last Filed: 08/21/16 12:37> Objective - Vital Signs/Intake and Output Vital Signs (last 24 hours): Temp Pulse Resp BP Pulse Ox 98.6 F 79 20 114/76 96 08/21/16 08:24 08/21/16 08:24 08/21/16 08:24 08/21/16 08:24 08/21/16 08:24 Intake and Output: 08/21/16 08/21/16 06:59 18:59 Intake Total 780 Balance 780 - Medications Medications: Current Medications Hydromorphone HCl (Dilaudid) 0.5 mg IVP Q4H PRN PRN Reason: Pain, moderate (4-7) Last Admin: 08/20/16 11:42 Dose: 0.5 mg Metronidazole (Flagyl) 250 mg in 50 mls @ 100 mls/hr IV Q8 [facility] PRN Reason: Protocol Stop: 08/25/16 10:01 Last Admin: 08/21/16 06:12 Dose: 100 mls/hr Ceftriaxone Sodium (Rocephin 1 Gram Ivpb) 1 gm in 100 mls @ 100 mls/hr IVPB DAILY [facility] PRN Reason: Protocol Last Admin: 08/21/16 10:23 Dose: 100 mls/hr Ondansetron HCl (Zofran Inj) 4 mg IVP Q6H PRN PRN Reason: Nausea/Vomiting Last Admin: 08/20/16 11:53 Dose: 4 mg Pantoprazole Sodium (Protonix Inj) 40 mg IVP DAILY [facility] Last Admin: 08/21/16 10:23 Dose: 40 mg - Labs Labs: 08/21/16 07:00 08/21/16 07:00 Attending/Attestation - Attestation I have personally seen and examined this patient.: Yes I have fully participated in the care of the patient.: Yes I have reviewed all pertinent clinical information, including history, physical exam and plan: Yes Notes (Text): 08/21/16 12:35 66 year old female with h/o small bowel obstruction, h/o diverticulitis admitted with abdominal pain and diarrhea, with CT scan showing evidence of enterocolitis. 1. Enteritis 2. Colitis 3. Abdominal pain 4. Diarrhea Plan: - diet as tolerated - supportive care with fluids/pain meds as needed - pain improved significantly - continue antibiotics for 5 day course - stool studies pending - outpatient follow up with Dr. Burton for colonoscopy
[2016-08-21] MEDS: cefTRIAXone 1 gm 1 GM/100 ML BAG IVPB SCH (10:23)
[2016-08-21] MEDS ORDERED: Potassium Chloride 20 mEq ER Tab PO ONE (12:58)
== END 2016-08-21 14:15 | disposition home or self-care (01) ==
LOC: ED 21:02 → ERH 08-20 02:07 → 3RNO 08-20 02:45
PROVIDERS: ADMIT Internal Medicine; ATTEND Internal Medicine
DX: K52.9 Noninfective gastroenteritis and colitis, unspecified (principal); K59.04 Chronic idiopathic constipation; E87.6 Hypokalemia; E86.0 Dehydration; M54.9 Dorsalgia, unspecified; G89.29 Other chronic pain; Z87.442 Personal history of urinary calculi
CPT/HCPCS: 36415; 74177; 80053; 83690; 85025; 85027; 96365; 96366; 96367; 96375; 96376; 99285; C9113; G0378; J0696; J1170; J2405; J2765; J3480; J7040; Q9967

== ENCOUNTER 2016-10-19 07:35 | Day surgery (SDC) | payer MEDICARE, BC ==
[2016-10-12 13:40] VITALS: BMI 22.4
[2016-10-19] MEDS ORDERED: Propofol 10 mg/ml Inj (20 ML) ONE (08:29)
[2016-10-19] MEDS ORDERED: Sodium Chloride 0.9% 1,000 ML IV SCH (09:00)
[2016-10-19 09:05] VITALS: RESP 16
[2016-10-19 09:33] VITALS: O2SAT 100
[2016-10-19 10:16] VITALS: BP 123/69; PULSE 77; TEMP 97.9
== END 2016-10-19 10:21 | disposition home or self-care (01) ==
LOC: ENDO 07:35
PROVIDERS: ATTEND Internal Medicine Gastroenterology
DX: Z12.11 Encounter for screening for malignant neoplasm of colon (principal); K64.1 Second degree hemorrhoids
CPT/HCPCS: 45378; J2704; J7040 ×2